=== PATIENT | female | born 1985 ===

== ENCOUNTER 2017-05-08 15:14 | Emergency (ER) | payer BC ==
[2017-05-08 15:56] VITALS: BMI 25.7
[2017-05-08 16:09] VITALS: PULSE 76; RESP 16; TEMP 97.9; O2SAT 100
--- NOTE | 2017-05-08 16:36 | C.PDOC ---
History Of Present Illness 31 y/o female 19 weeks in Pre- care presents to ED with complaints of vaginal spotting and mild suprapubic discomfort. Patient states wiping herself and finding small a amount of blood. Patient reports visiting OBGYN (Dr. Ashia Hardin) and having an ultrasound done at 13 weeks where IUP was positive. Patient denies vomiting, diarrhea, fever or any other complaints at this time. Time Seen by Provider: 05/08/17 15:33 Chief Complaint (Nursing): Female Genitourinary History Per: Patient History/Exam Limitations: no limitations Onset/Duration Of Symptoms: Days Associated Symptoms: denies: Nausea, Vomiting Past Medical History Reviewed: Historical Data, Nursing Documentation, Vital Signs Vital Signs: Last Vital Signs Temp 97.9 F 05/08/17 15:55 Pulse 76 05/08/17 15:55 Resp 16 05/08/17 15:55 BP 111/71 05/08/17 15:55 Pulse Ox 100 05/08/17 17:34 Family History: States: No Known Family Hx - Social History Hx Alcohol Use: No Hx Substance Use: No - Immunization History Hx Tetanus Toxoid Vaccination: No Hx Influenza Vaccination: No Hx Pneumococcal Vaccination: No Review Of Systems Except As Marked, All Systems Reviewed And Found Negative. Constitutional: Negative for: Fever, Chills Gastrointestinal: Positive for: Abdominal Pain. Negative for: Nausea, Vomiting , Diarrhea Skin: Negative for: Rash Neurological: Negative for: Weakness, Headache, Dizziness Physical Exam - Physical Exam Appears: Non-toxic, No Acute Distress Head: Atraumatic, Normacephalic Eye(s): bilateral: Normal Inspection, PERRL, EOMI Oral Mucosa: Moist Throat: Normal, No Erythema Neck: Normal ROM Cardiovascular: Rhythm Regular, No Murmur Respiratory: Normal Breath Sounds, No Rales, No Rhonchi, No Wheezing Gastrointestinal/Abdominal: Soft, No Tenderness, No Guarding, No Rebound Extremity: Normal ROM, Capillary Refill (<2 seconds) Neurological/Psych: Oriented x3, Normal Speech, Normal Motor Gait: Steady ED Course And Treatment - Laboratory Results Result Diagrams: 05/08/17 16:36 O2 Sat by Pulse Oximetry: 100 (RA) Pulse Ox Interpretation: Normal - CT Scan/US US pelvic Other Rad Studies (CT/US): Read By Radiologist CT/US Interpretation: FINDINGS: UTERUS: Gestational sac: Single intrauterine fetus in transverse presentation. Heart rate: 148 bpm. age ( Ultrasound estimated): 19 weeks and 3 days. Sury-gestational hemorrhage: None. Date of delivery (Ultrasound estimated) : 09/29/2017. BPD: 4.58 cm corresponding to 19 weeks and 6 days of gestational age. HC: 16.8 cm corresponding to 19 weeks and 3 days of gestational age. AC: 13.4 cm corresponding to 18 weeks and 6 days of gestational age. FL: 3.0 cm corresponding to 19 weeks and 2 days of gestational age. Placenta is posterior. There is adequate amount of amniotic fluid. CERVIX: Long and closed. No cervical abnormality seen. FREE FLUID: None. OTHER FINDINGS: None. IMPRESSION: Single live intrauterine fetus in transverse presentation with estimated gestational age of 19 weeks and 3 days. The estimated date of delivery by ultrasound is 09/29/2017. The ultrasound dates correspond with the clinical dates. Placenta is posterior, cervix is closed and there is adequate amount of amniotic fluid. Please note this is a limited obstetric ultrasound performed in the emergency room and a follow-up dedicated anatomic survey a on a non emergent basis is advised. Medical Decision Making Medical Decision Makin yo F is 19 weeks , presents with 1 episode of vaginal spotting. Plan: - CBC - UA and urine cx - Pelvic US Labs reviewed, hgb 10.4 / hct 33.1, UA shows (+) UTI. Type and screen : A+ noted on 03/06/17. US pelvis shows (+) 19 weeks . Rocephin 1 g IV ordered. On re-evaluation, patient is resting comfortably in bed in no acute distress. Reports no abdominal pain or vaginal bleeding. On exam, abdomen remains soft with no tenderness and no CVA tenderness. Diagnostic results d/w the patient in great detail. Rx for macrobid provided to the patient. Advised to f/u with her OB in 2 days without fail. Return to the ER at any time for any new or worsening symptoms. Disposition - Disposition Disposition: HOME/ ROUTINE Disposition Time: 17:28 Condition: STABLE Prescriptions: Nitrofurantoin Macrocrystals [Macrobid] 100 mg PO BID #20 cap Instructions: at 19 to 22 Weeks (ED), Urinary Tract Infection in (ED) Forms: Work/School/Gym Excuse Print Language: EGYPTIAN - Clinical Impression Clinical Impression: , Vaginal spotting, UTI (urinary tract infection) - PA / [employer] / Resident Statement MD/DO has reviewed & agrees with the documentation as recorded. - Scribe Statement The provider has reviewed the documentation as recorded by the Nickibchristianne James All medical record entries made by the Kylah were at my direction and personally dictated by me. I have reviewed the chart and agree that the record accurately reflects my personal performance of the history, physical exam, medical decision making, and the department course for this patient. I have also personally directed, reviewed, and agree with the discharge instructions and disposition.
[2017-05-08 16:40] LABS: BASO % 0.7 % (0.0-2.0); EOS # 0.1 K/uL (0.0-0.7); EOS % 0.9 % (0.0-4.0); HEMATOCRIT 33.1 % (34.0-47.0); LYMPH # 1.6 K/uL (1.0-4.3); LYMPH % 26.5 % (20.0-40.0); MEAN CELL VOLUME 63.7 fL (81.0-99.0); MEAN CORPUSCULAR HGB CONC 31.5 g/dL (33.0-37.0); MEAN PLATELET VOLUME 10.2 fL (7.2-11.7); MONO # 0.4 K/uL (0.0-0.8); MONO % 6.9 % (0.0-10.0); NRBC % 0.2 % (0.0-2.0); RED CELL DISTRIBUTION WIDTH 16.1 % (11.5-14.5); WHITE BLOOD COUNT 5.9 K/uL (4.8-10.8)
--- NOTE | 2017-05-08 17:22 | US ---
PROCEDURE: OB Pelvic Ultrasound HISTORY: vag spotting 19 wks preg COMPARISON: None available. FINDINGS: UTERUS: Gestational sac: Single intrauterine fetus in transverse presentation. Heart rate: 148 bpm. age (Ultrasound estimated): 19 weeks and 3 days Sury-gestational hemorrhage: None. Date of delivery (Ultrasound estimated) : 09/29/2017 BPD: 4.58 cm corresponding to 19 weeks and 6 days of gestational age. HC: 16.8 cm corresponding to 19 weeks and 3 days of gestational age. AC: 13.4 cm corresponding to 18 weeks and 6 days of gestational age. FL: 3.0 cm corresponding to 19 weeks and 2 days of gestational age. Placenta is posterior. There is adequate amount of amniotic fluid. CERVIX: Long and closed. No cervical abnormality seen. FREE FLUID: None. OTHER FINDINGS: None. IMPRESSION: Single live intrauterine fetus in transverse presentation with estimated gestational age of 19 weeks and 3 days. The estimated date of delivery by ultrasound is 09/29/2017. The ultrasound dates correspond with the clinical dates. Placenta is posterior, cervix is closed and there is adequate amount of amniotic fluid. Please note this is a limited obstetric ultrasound performed in the emergency room and a follow-up dedicated anatomic survey a on a non emergent basis is advised.
[2017-05-08 17:51] LABS: RBC URINE 9 /hpf (0-3); URINE BACTERIA OCC (<OCC); URINE BILIRUBIN NEGATIVE (NEGATIVE); URINE BLOOD 1+ (NEGATIVE); URINE COLOR Straw (YELLOW); URINE GLUCOSE (UA) NORMAL (Normal); URINE KETONE NEGATIVE (NEGATIVE); URINE LEUKOCYTE ESTERASE 2+ Leu/uL (Negative); URINE PROTEIN NEGATIVE (NEGATIVE); URINE UROBILINOGEN NORMAL mg/dL (0.2-1.0); WBC URINE 18 /hpf (0-5)
[2017-05-08 18:23] VITALS: BP 106/72
== END 2017-05-08 19:11 | disposition home or self-care (01) ==
LOC: C.ER 15:14
DX: O23.42 Unspecified infection of urinary tract in pregnancy, second trimester (principal); O26.852 Spotting complicating pregnancy, second trimester; Z3A.19 19 weeks gestation of pregnancy
CPT/HCPCS: 76815; 81001; 85025; 87086; 96365; 99285; J0696